=== PATIENT | female | born 1960 | race Caucasian/White ===

== ENCOUNTER 2016-08-14 23:09 | Emergency (ER) | payer MEDICARE, OTHER | END 2016-08-14 23:51 | disposition home or self-care (01) | LOC: ER 23:09 | DX: S05.01XA Injury of conjunctiva and corneal abrasion without foreign body, right eye, initial encounter (principal); G43.909 Migraine, unspecified, not intractable, without status migrainosus; I10 Essential (primary) hypertension; Z86.73 Personal history of transient ischemic attack (TIA), and cerebral infarction without residual deficits; Z98.51 Tubal ligation status; Z88.0 Allergy status to penicillin; Z88.2 Allergy status to sulfonamides; Z88.6 Allergy status to analgesic agent; Z88.8 Allergy status to other drugs, medicaments and biological substances; X58.XXXA Exposure to other specified factors, initial encounter ==